=== PATIENT | male | born 1990 | race Caucasian/White ===

== ENCOUNTER 2017-04-13 15:18 | Emergency (ER) | payer MEDICAID ==
[2017-04-13 15:29] VITALS: PULSE 76; O2SAT 96
--- NOTE | 2017-04-13 15:48 | EDPHY ---
H & P Time Seen by Provider: 04/13/17 15:38 HPI/ROS: CHIEF COMPLAINT: Left arm and chest pain HISTORY OF PRESENT ILLNESS: The patient is a 26-year-old male presenting with left arm and left chest discomfort that started 1 week ago. The patient reports a swelling sensation in the left side of his chest. This pain has remained constant since onset. It improves when he wakes up and is worse with change in position. No exertional pain. Over the past few days the pain has increased in severity. He also has intermittent discomfort in his left arm. No neck pain or injury. He denies shortness of breath. No recent heavy lifting or trauma to the area. Cardiac risk factors negative. Nonsmoker; no family history; no hypertension, diabetes or hypercholesterolemia. REVIEW OF SYSTEMS: A comprehensive 10 point review of systems is otherwise negative aside from elements mentioned in the history of present illness. Past Medical/Surgical History: Denies. Social History: Single. Nonsmoker. No recent alcohol. Smoking Status: Never smoked Physical Exam: General Appearance: Alert, pleasant Eyes: Pupils equal and round, no conjunctival pallor or injection ENT, Mouth: Mucous membranes moist Neck: Normal inspection Respiratory: Normal inspection, no chest wall tenderness, Lungs are clear to auscultation Cardiovascular: Regular rate and rhythm Gastrointestinal: Abdomen is soft and non-tender Neurological: A&O, nonfocal, normal gait Skin: Warm and dry, no rash Extremities: Left radial pulse is 2+. Left upper extremity is nontender, no swelling Psychiatric: Mood and affect normal Constitutional: Initial Vital Signs Temperature (C) 36.6 C 04/13/17 15:26 Heart Rate 76 04/13/17 15:26 Respiratory Rate 18 04/13/17 15:26 Blood Pressure 136/81 H 04/13/17 15:26 O2 Sat (%) 96 04/13/17 15:26 O2 Delivery Mode Room Air Allergies/Adverse Reactions: Penicillins Allergy (Verified 04/13/17 15:26) Home Medications: Medication Instructions Recorded Concert 04/13/17 Medical Decision Making - Diagnostics EKG Interpretation: EKG interpreted by me reveals normal sinus rhythm, normal axis, normal intervals , ST and T segments normal. Interpretation: normal EKG Imaging Results: Chest x-ray: No acute disease ED Course/Re-evaluation: This patient presents with 1 week history of constant left-sided chest pain. Stat EKG reveals no evidence of ischemia or dysrhythmia. Chest x-ray is unremarkable. After careful consideration and evaluation, I find no evidence of acute coronary syndrome. The patient has no risk factors for coronary disease, normal EKG and normal studies. In addition, I feel that I can safely exclude pulmonary embolism, with normal vital signs, normal oxygen saturation and normal studies. In addition there is no evidence of pneumothorax, pneumonia, aortic dissection.Likely musculoskeletal etiology of pain. There is no evidence of a serious etiology for his pain. Feel that he is safe and stable for discharge. Differential Diagnosis: Differential diagnosis includes though it is not limited to pneumonia, pneumothorax, pulmonary embolism, aortic dissection, pericarditis, acute coronary syndrome. Departure - Departure Disposition: Home, Routine, Self-Care Clinical Impression: Chest pain Condition: Good Instructions: Chest Pain (ED) Additional Instructions: You have been referred to a primary care physician below, please followup if you continue to have symptoms. Return to the Emergency Department with shortness of breath, pain or swelling in your extremities, or worsening symptoms. Referrals: Christ Rollins MD [Medical Doctor] - As per Instructions Report Scribed for: Wanda Lovelace Report Scribed by: Amina Forte Date of Report: 04/13/17 Time of Report: 15:49 Physician Review and Approval Statement: 04/13/17 15:49 Portions of this note were transcribed by a medical practice administrator. I personally performed the history, physical exam, and medical decision-making; and confirmed the accuracy of the information in the transcribed note.
--- NOTE | 2017-04-13 15:49 | CPEKG ---
Heart Rate: 82 RR Interval: 732 P-R Interval: 144 QRSD Interval: 88 QT Interval: 348 QTC Interval: 407 P [place]: 16 QRS [place]: 39 T Wave [place]: 24 EKG Severity - NORMAL ECG - EKG Impression: SINUS RHYTHM Electronically Signed By: Wanda Lovelace 13-Apr-2017 21:42:09
[2017-04-13 16:51] VITALS: BP 116/83; RESP 16; TEMP 98.4
== END 2017-04-13 16:51 | disposition home or self-care (01) ==
DX: R07.9 Chest pain, unspecified (principal)